=== PATIENT | male | born 1965 | race Caucasian/White ===

== ENCOUNTER 2022-05-31 12:17 | Emergency (ER) | payer BC ==
[2022-05-31] MEDS ORDERED: Ondansetron PF 4 MG/2 ML Vial ONE (13:03)
[2022-05-31] MEDS ORDERED: diphenhydrAMINE 12.5 MG/5 ML UDCUP ONE (13:04)
[2022-05-31] MEDS ORDERED: Morphine 4 MG/ML VIAL ONE (13:06)
[2022-05-31] MEDS ORDERED: diphenhydrAMINE 50 MG/ML VIAL ONE (13:11)
[2022-05-31 13:13] LABS: #Lymphocytes 1.1 thou/uL (1.20-3.40); #Monocytes 0.4 thou/uL (0.11-0.59); #Neutrophils 7.1 thou/uL (1.40-6.50); %Basophils 0.4 % (0.0-1.0); %Eosinophils 0.5 % (0.0-10.0); %Lymphocytes 12.3 % (21.0-51.0); %Monocytes 4.7 % (0.0-10.0); %Neutrophils 82.1 % (42.0-75.0); Hemoglobin 14.9 g/dL (14.0-18.0); Mean Corpuscular HGB CONC 33.4 g/dL (32.0-36.0); Mean Corpuscular Hemoglobin 31.6 pg (27.0-31.0); Mean Corpuscular Volume 94.8 fL (78.0-98.0); Platelet Count 185 thou/uL (130-400); RBC Distribution Width 11.2 % (11.5-14.5); Red Blood Cell (RBC) Count 4.72 mill/uL (4.70-6.10); White Blood Cell (WBC) Count 8.7 thou/uL (4.8-10.8)
[2022-05-31 13:38] LABS: ALT (SGPT) 41 U/L (8-55); AST (SGOT) 31 U/L (5-34); Albumin 4.2 g/dL (3.5-5.0); Alkaline Phosphatase 58 U/L (40-110); Anion Gap 13 mmol/L (10-20); BUN (Urea Nitrogen) 23 mg/dL (8.4-25.7); Bilirubin, Total 0.8 mg/dL (0.2-1.2); Calc. Creatinine Clearance 0 mL/min (70-130); Calcium 8.7 mg/dL (7.8-10.44); Carbon Dioxide 22 mmol/L (22-29); Chloride 107 mmol/L (98-107); Estimated GFR 103; Globulin 2.7 g/dL (2.4-3.5); Glucose 127 mg/dL (70-105); Lipase 26 U/L (8-78); Protein, Total 6.9 g/dL (6.0-8.3); Sodium 138 mmol/L (136-145)
[2022-05-31] MEDS ORDERED: Iopamidol-370 76% 500 ML 1 ML ONE (13:46)
[2022-05-31] MEDS ORDERED: Lidocaine Viscous Sol 2% 15 ml UD Cup ONE (16:37)
[2022-05-31] MEDS ORDERED: Mag-Al 1200 mg/1200 mg/30 ML UDCUP ONE (16:38)
== END 2022-05-31 17:17 | disposition home or self-care (01) ==
LOC: ERS 12:17
DX: R10.11 Right upper quadrant pain (principal); Z79.899 Other long term (current) drug therapy; I10 Essential (primary) hypertension; F17.290 Nicotine dependence, other tobacco product, uncomplicated
CPT/HCPCS: 36415; 74177; 76705; 80053; 83605; 83690; 84484; 85025; 93005; 94760; 96374; 96375; J1200; J2270; J2405; Q0163; Q9967

== ENCOUNTER 2023-07-26 05:59 | Day surgery (SDC) | payer BC ==
[2023-07-25 15:07] VITALS: BMI 36.6
[2023-07-26] MEDS ORDERED: Cyclopentolate W/ Phenylephrin 40 DROP/2 ML BOT ONE (06:07)
[2023-07-26] MEDS ORDERED: EPINEPHrine 0.3 MG in Ophthalmic Irrigation Solution 500 ML IRR SCH (06:15)
[2023-07-26] MEDS ORDERED: fentaNYL PF 100 MCG/2 ML SYRINGE ONE (06:59)
[2023-07-26] MEDS ORDERED: Midazolam HCl 2 mg/2 ml Vial ONE (06:59)
[2023-07-26] MEDS ORDERED: PROPOFOL 200 MG/20 ML VIAL ONE (07:15)
[2023-07-26] MEDS ORDERED: CEFAZOLIN 1 GM VIAL ONE (07:15)
[2023-07-26] MEDS ORDERED: Lidocaine 4% PF 5 ML AMP ONE (07:15)
[2023-07-26] MEDS ORDERED: Bupivacaine 0.75% 10 ML VIAL ONE (07:15)
[2023-07-26] MEDS ORDERED: Triamcinolone 40 MG/ML VIAL ONE (07:15)
[2023-07-26] MEDS ORDERED: Maxitrol 0.1% Opth Oint 3.5 GM TUBE ONE (07:15)
[2023-07-26] MEDS ORDERED: Lidocaine 1% PF 5 ML VIAL ONE (07:15)
[2023-07-26] MEDS ORDERED: Ondansetron PF 4 MG/2 ML Vial ONE (07:15)
== END 2023-07-26 08:57 | disposition home or self-care (01) ==
LOC: SDC 05:59
PROVIDERS: ATTEND Ophthalmology Retina Specialist
PROC: 08QF3ZZ Repair Left Retina, Percutaneous Approach (ICD-10-PCS; principal; 2023-07-26)
PROC: 08T53ZZ Resection of Left Vitreous, Percutaneous Approach (ICD-10-PCS; principal; 2023-07-26)
DX: H43.12 Vitreous hemorrhage, left eye (principal); H33.312 Horseshoe tear of retina without detachment, left eye
CPT/HCPCS: J0171; J0690; J2250; J2405; J2704; J3301; J3490

== ENCOUNTER 2023-11-29 16:20 | Outpatient (CLI) | payer BC | END 2023-11-29 16:21 | disposition home or self-care (01) | LOC: BICRAD 16:20 | PROVIDERS: ATTEND Nurse Practitioner Family | DX: R07.81 Pleurodynia (principal) ==